=== PATIENT | female | born 2000 | race African-American/Black ===

== ENCOUNTER 2021-03-26 02:10 | Observation (INO) | payer SELFPAY ==
[~2021-03-26] VITALS: Ht 160 cm; Wt 75.7 kg
[2021-03-26] MEDS ORDERED: PREN-96 PO (03:34)
== END 2021-03-26 08:00 | disposition home or self-care (01) ==
LOC: LDRP 02:10
PROVIDERS: ADMIT Obstetrics & Gynecology; ATTEND Obstetrics & Gynecology
DX: O26.892 Other specified pregnancy related conditions, second trimester (principal); R10.9 Unspecified abdominal pain; O36.8130 Decreased fetal movements, third trimester, not applicable or unspecified; Z3A.26 26 weeks gestation of pregnancy; W19.XXXA Unspecified fall, initial encounter; Y93.89 Activity, other specified; Y92.89 Other specified places as the place of occurrence of the external cause
CPT/HCPCS: 59025; 76805; 76817; 81002; G0378